=== PATIENT | male | born 1965 ===

== ENCOUNTER 2022-03-11 06:52 | Day surgery (SDC) | payer OTHER ==
[~2022-03-11] VITALS: Ht 170.2 cm; Wt 90.7 kg
[2022-03-11] MEDS ORDERED: diphenhydrAMINE 50 MG/ML VIAL ONE (07:25)
[2022-03-11] MEDS ORDERED: MIDAZOLAM 5 MG/5 ML VIAL ONE (07:26)
[2022-03-11] MEDS ORDERED: fentaNYL citrate 0.05 MG/ML VIAL ONE (07:26)
[2022-03-11] MEDS ORDERED: LIDOCAINE 2% 100 MG/5 ML UJET TP ONE (07:26)
[2022-03-11] MEDS ORDERED: BENZOCAINE 20% 57 GM CAN MC ONE (07:28)
[2022-03-11] MEDS ORDERED: diphenhydrAMINE 50 MG/ML VIAL IVP ONE (12:55)
[2022-03-11] MEDS ORDERED: fentaNYL citrate 0.05 MG/ML VIAL IVP ONE (12:55)
[2022-03-11] MEDS ORDERED: MIDAZOLAM 5 MG/5 ML VIAL IV ONE (12:55)
== END 2022-03-11 08:39 | disposition home or self-care (01) ==
LOC: MDS 06:52 → MMU 06:52 → MDS 08:39
PROVIDERS: ATTEND Internal Medicine Gastroenterology
DX: Z12.11 Encounter for screening for malignant neoplasm of colon (principal); K29.70 Gastritis, unspecified, without bleeding; K63.5 Polyp of colon; K21.9 Gastro-esophageal reflux disease without esophagitis; K31.89 Other diseases of stomach and duodenum; I10 Essential (primary) hypertension; E78.5 Hyperlipidemia, unspecified; Z90.49 Acquired absence of other specified parts of digestive tract; Z88.8 Allergy status to other drugs, medicaments and biological substances; Z20.822 Contact with and (suspected) exposure to COVID-19; Z79.899 Other long term (current) drug therapy
CPT/HCPCS: 43239; 45385; 87426; J1200; J2250; J3010